=== PATIENT | male | born 1950 | race Caucasian/White ===

== ENCOUNTER 2017-03-26 08:56 | Emergency (ER) | payer MEDICARE ==
--- NOTE | 2017-03-26 09:25 | Emergency Department Record ---
History of Present Illness - General Chief complaint: Abscess Stated complaint: ABSCESS ON SHOULDER Time Seen by Provider: 03/26/17 09:23 Source: Patient Mode of Arrival: Ambulatory Limitations: No limitations - History of Present Illness Initial comments: 66 yo male presents to ED with a CC of worsening swelling, pain, and drainage from the posterior left scapular region. Patient reports that he injured himself with a splinter to the area 15 years ago, and as a result has intermittent pain and swelling for years. Patient denies fevers, chills, or recent illness. Patient reports that he attempted to drain the lesion at home. Patient denies health problems other than COPD. MD complaint: Abscess/boil Onset/Timin -: Days(s) Location: Back Severity: Moderate Severity scale (1-10): 6 Quality: Aching Consistency: Constant Improves with: None Worsens with: Palpation Associated symptoms: Denies other symptoms - Related Data Home Medications Medication Instructions Recorded Confirmed Last Taken Hydrochlorothiazide [Hctz 12.5MG] 12.5 mg PO DAILY 03/26/17 03/26/17 03/25/17 Lisinopril [Zestril] 20 mg PO DAILY 03/26/17 03/26/17 03/25/17 Previous Rx's Medication Instructions Recorded Clindamycin HCl 300 mg PO QID #28 capsule 03/26/17 Allergies Allergy/AdvReac Type Severity Reaction Status Date / Time No Known Drug Allergies Allergy Verified 03/26/17 09:05 Travel Screening - Travel/Exposure Within Last 30 Days Have you traveled within the last 30 days?: No - Travel/Exposure Within Last Year Have you traveled outside the [place] in the last year?: No - Additonal Travel Details Have you been exposed to anyone with a communicable illness?: No - Travel Symptoms Symptom Screening: None Review of Systems Constitutional: Denies: Chills, Fever, Malaise Eyes: Denies: Eye discharge, Eye pain ENT: Denies: Congestion, Ear pain, Epistaxis Respiratory: Denies: Cough, Dyspnea Cardiovascular: Denies: Chest pain, Dyspnea on exertion Endocrine: Denies: Fatigue, Heat or cold intolerance Gastrointestinal: Denies: Abdominal pain, Nausea, Vomiting Genitourinary: Denies: Incontinence, Retention Musculoskeletal: Reports: Back pain (left scapular pain/swelling). Denies: Arthralgia, Gout, Joint swelling Skin: Denies: Bruising, Change in color, Change in hair/nails Neurological: Denies: Abnormal gait, Confusion, Headache, Seizure Psychiatric: Denies: Anxiety Hematological/Lymphatic: Denies: Anemia, Blood Clots Past Medical History - SOCIAL HISTORY Smoking Status: Current every day smoker Alcohol Use: Heavy Drug Use: None - RESPIRATORY Hx Respiratory Disorders: Yes Hx COPD: Yes - CARDIOVASCULAR Hx Cardio Disorders: Yes Hx Hypertension: Yes - NEURO Hx Neuro Disorders: No - GI Hx GI Disorders: No - Hx Genitourinary Disorders: No - ENDOCRINE Hx Endocrine Disorders: No - MUSCULOSKELETAL Hx Musculoskeletal Disorders: Yes Hx Back Injury: Yes - PSYCH Hx Psych Problems: No - HEMATOLOGY/ONCOLOGY Hx Hematology/Oncology Disorders: No Family Medical History Any Significant Family History?: No Physical Exam - General General Appearance: Alert, Oriented x3, Cooperative, No acute distress Limitations: No limitations - Head Head exam: Atraumatic, Normocephalic, Normal inspection Head exam detail: negative: Abrasion, Contusion, Soni's sign, General tenderness, Hematoma, Laceration - Eye Eye exam: Normal appearance. negative: Conjunctival injection, Periorbital swelling, Periorbital tenderness, Scleral icterus - ENT Ear exam: negative: Auricular hematoma, Auricular trauma Nasal Exam: negative: Active bleeding, Discharge, Dried blood, Foreign body Mouth exam: negative: Drooling, Laceration, Muffled voice, Tongue elevation - Neck Neck exam: Normal inspection. negative: Meningismus, Tenderness - Respiratory Respiratory exam: Normal lung sounds bilaterally. negative: Rales, Respiratory distress, Rhonchi, Stridor - Cardiovascular Cardiovascular Exam: Regular rate, Normal rhythm, Normal heart sounds - GI/Abdominal GI/Abdominal exam: Soft. negative: Rebound, Rigid, Tenderness - Rectal Rectal exam: Deferred - exam: Deferred - Extremities Extremities exam: Normal inspection. negative: Calf tenderness, Pedal edema, Tenderness - Back Back exam: Denies: CVA tenderness (R), CVA tenderness (L) Image of Body Front/Back: 1 - Raised lesion to the left scapular region - Neurological Neurological exam: Alert, Normal gait, Oriented X3 - Psychiatric Psychiatric exam: Normal affect, Normal mood - Skin Skin exam: Erythema Type of lesion: Abscess Distribution of rash: Back Course Vital Signs 03/26/17 08:57 Temperature 97.9 F Pulse Rate 95 H Respiratory 16 Rate Blood Pressure 156/105 Pulse Ox 98 - Reevaluation(s) Reevaluation #1: 03/26/17 09:30 Procedure Note: Area was anesthetized with 1.0 mL 1% Lidocaine with epi with good anesthesia, lesion was incised with #11 Blade and probed to break up loculations in the area. Lesion appears c/s probably ganglion cyst on evaluation, will refer to [facility]ty [facility] for further evaluation and possible surgical removal. Will discharge home on Clindamycin as well for antibiotic treatment for possible abscess. 03/26/17 09:32 Disposition Disposition: Discharge Clinical Impression: Ganglion cyst Disposition: Home, Self-Care Condition: (2) Stable Instructions: Abscess Incision and Drainage (ED) Additional Instructions: Return to ED if your symptoms worsen or if you have any concerns. Clindamycin as directed. Follow-up with Dr. Durbin in the [facility] for evaluation of possible ganglion cyst. Prescriptions: Clindamycin HCl 300 mg PO QID #28 capsule Referrals: Edwardo Durbin [DOCTOR OF OSTEOPATH] - [facility] [Provider Group] Forms: Patient Portal Access Time of Disposition: 09:25
== END 2017-03-26 09:36 | disposition home or self-care (01) ==
LOC: ER 08:56
DX: M67.412 Ganglion, left shoulder (principal)
CPT/HCPCS: 10060; 99283

== ENCOUNTER 2018-12-20 02:39 | Emergency (ER) | payer MEDICARE ==
--- NOTE | 2018-12-20 02:45 | Emergency Department Record ---
History of Present Illness - General Stated Complaint: FALL W/ETOH Time Seen by Provider: 12/20/18 02:40 Source: Patient, EMS Mode of Arrival: EMS Limitations: No limitations - History of Present Illness Initial Comments: 68 yo male presents to ED for evaluation following a fall injury resulting in injury to the left jerrica-orbital region on examination. Patient denies LOC, however reports that he has been drinking alcohol this evening. Patient denies other injury on examination. Patient denies the use of anticoagulation medications on examination. Patient denies numbness, tingling, or focal weakness on examination. MD Complaint: Fall Onset/Timin -: Minutes(s) When Fall Occurred: 1 hour [employer] Fall Witnessed: Yes, by bystander Place Fall Occurred: Home Loss of Consciousness: Unsure Prolonged Down Time?: No Symptoms Prior to Fall: None Location: Head Severity: Moderate Context: Alcohol use - Semaj Coma Scale Eye Response: (4) Open spontaneously Motor Response: (6) Obeys commands Verbal Response: (5) Oriented Semaj Total: 15 - Related Data Allergies Allergy/AdvReac Type Severity Reaction Status Date / Time No Known Drug Allergies Allergy Verified 12/20/18 02:43 Review of Systems Constitutional: Denies: Chills, Malaise, Night sweats Eyes: Denies: Eye discharge, Eye pain ENT: Denies: Congestion, Ear pain, Epistaxis Respiratory: Denies: Cough, Dyspnea Cardiovascular: Denies: Chest pain, Dyspnea on exertion Endocrine: Denies: Fatigue, Heat or cold intolerance Gastrointestinal: Denies: Abdominal pain, Nausea, Vomiting Genitourinary: Denies: Incontinence, Retention Musculoskeletal: Denies: Arthralgia, Back pain, Gout, Joint swelling Skin: Denies: Bruising, Change in color Neurological: Denies: Abnormal gait, Confusion, Headache, Seizure Psychiatric: Denies: Anxiety Hematological/Lymphatic: Denies: Anemia, Blood Clots Past Medical History - SOCIAL HISTORY Smoking Status: Current every day smoker Drug Use: None - RESPIRATORY Hx Respiratory Disorders: Yes Hx COPD: Yes - CARDIOVASCULAR Hx Cardio Disorders: Yes Hx Hypertension: Yes - NEURO Hx Neuro Disorders: No - GI Hx GI Disorders: No - Hx Genitourinary Disorders: No - ENDOCRINE Hx Endocrine Disorders: No - MUSCULOSKELETAL Hx Musculoskeletal Disorders: Yes Hx Back Injury: Yes - PSYCH Hx Psych Problems: No - HEMATOLOGY/ONCOLOGY Hx Hematology/Oncology Disorders: No Physical Exam - General General Appearance: Alert, Oriented x3, Cooperative, Mild distress, Other ( Clinically intoxicated on examination, moderate STS the the supra-orbital region left eye.) Limitations: Altered mental status - Head Head exam detail: Hematoma (Hematoma above the left supra-orbital region, no overlying laceration present.). negative: Abrasion, Contusion, Soni's sign, General tenderness, Laceration - Eye Eye exam: Normal appearance. negative: Conjunctival injection, Periorbital swelling, Periorbital tenderness, Scleral icterus - ENT Ear exam: negative: Auricular hematoma, Auricular trauma Nasal Exam: negative: Active bleeding, Discharge, Dried blood, Foreign body Mouth exam: negative: Drooling, Laceration, Muffled voice, Tongue elevation - Neck Neck exam: Normal inspection. negative: Meningismus, Tenderness - Respiratory Respiratory exam: Normal lung sounds bilaterally. negative: Rales, Respiratory distress, Rhonchi, Stridor - Cardiovascular Cardiovascular Exam: Regular rate, Normal rhythm, Normal heart sounds - GI/Abdominal GI/Abdominal exam: Soft. negative: Rebound, Rigid, Tenderness - Rectal Rectal exam: Deferred - exam: Deferred - Extremities Extremities exam: Normal inspection. negative: Pedal edema, Tenderness - Back Back exam: Denies: CVA tenderness (R), CVA tenderness (L) - Neurological Neurological exam: Alert, Oriented X3. negative: Motor sensory deficit - Psychiatric Psychiatric exam: Normal affect, Normal mood - Skin Skin exam: Normal color. negative: Abrasion Type of lesion: negative: abrasion Course - Reevaluation(s) Reevaluation #1: 12/20/18 02:45 Patient was seen and examined, no history of anticoagulation medication use on examination. Will obtain CT imaging of the head, maxillo-facial bones, and cervical spine and observe until clinically sober. Reevaluation #2: 12/20/18 04:32 CT Brain: No acute intracranial hemorrhage. No skull fracture. CT Maxillofacial bones: No acute facial bone fracture Left preseptal subcutaneous tissue swelling/hematoma CT Cervical Spine: No acute osseous abnormality Multi-level DJD Patient is ambulating around Room #5 without difficulty, appears stable for discharge with a sober ride when available. Will continue to monitor. 12/20/18 06:36 Patient was reassessed, sleeping, easily arouses to voice. Patient does not have his phone on his belongings to call for a ride, does not know any phone numbers to call for a ride. Reevaluation #3: 12/20/18 06:55 Case was discussed with oncoming provider, will assume care and disposition pending sober ride back to [place]. Disposition Disposition: Discharge Clinical Impression: Periorbital hematoma of left eye Alcohol intoxication Qualifiers: Complication of substance-induced condition: uncomplicated Qualified Code(s): F10.920 - Alcohol use, unspecified with intoxication, uncomplicated Fall Qualifiers: Encounter type: initial encounter Qualified Code(s): W19.XXXA - Unspecified fall, initial encounter Disposition: Home, Self-Care Condition: (2) Stable Instructions: Fall Prevention (ED) Additional Instructions: Return to ED if your symptoms worsen or if you have any concerns. Follow-up with your family doctor in 3-5 days as directed. Time of Disposition: 04:35 Quality - Quality Measures Quality Measures: N/A - Blood Pressure Screening Does Patient Have Any of the Following: No Blood Pressure Classification: Normal BP Reading Systolic Measurement: 115 Diastolic Measurement: 76 Screening for High Blood Pressure: < Normal BP, F/U Not Required > [[id number]]
--- NOTE | 2018-12-22 07:34 | CT SCAN REPORT ---
EXAM: NONCONTRAST CT OF THE BRAIN HISTORY: FALL. TECHNIQUE: Noncontrast CT of the brain was obtained. Comparison: None. FINDINGS: No midline shift, mass effect, or abnormal intra or extraaxial fluid collection. No cerebral edema, focal mass or intracranial hemorrhage detected. The ventricle size is within normal limits for patient age. The basal cisterns are not effaced. No displaced calvarial fracture is seen. Left lateral periorbital soft tissue hematoma. IMPRESSION: 1. NO ACUTE INTRACRANIAL FINDINGS. 2. SUPERFICIAL LEFT LATERAL PERIORBITAL SOFT TISSUE HEMATOMA/SWELLING. 3. A PRELIMINARY REPORT WAS PROVIDED BY THE [facility]. JOB NUMBER: [id number] [facility]
--- NOTE | 2018-12-22 07:52 | CT SCAN REPORT ---
EXAM: NONCONTRAST CT OF THE FACIAL BONES HISTORY: FALL, LEFT PERIORBITAL TRAUMA. TECHNIQUE: Noncontrast CT of the facial bones was obtained. Comparison: None. FINDINGS: Focal lateral left periorbital soft tissue swelling suggestive of a hematoma. The globes are intact and symmetric. The retrobulbar fat is clear. The orbital rims appear intact. The nasal bones appear intact. The zygomatic arches appear intact. The mandible appears intact. The patient is edentulous. The paranasal sinuses are clear. IMPRESSION: 1. LEFT PERIORBITAL SOFT TISSUE SWELLING/HEMATOMA. 2. NO ACUTE FACIAL BONE FRACTURE. JOB NUMBER: [id number] [facility]
--- NOTE | 2018-12-22 07:56 | CT SCAN REPORT ---
EXAM: NONCONTRAST CT OF THE CERVICAL SPINE HISTORY: FALL. TECHNIQUE: Noncontrast CT of the cervical spine was obtained. Comparison: None. FINDINGS: No acute fracture is seen. No evidence of dislocation. The prevertebral soft tissues appear within normal limits. The vertebral body heights are maintained. Multilevel disk space height loss with end plate osteophytes, relative sparing at C2-C3. Diffuse facet arthrosis. No significant central spinal canal narrowing appreciated. The neural foramina appear narrowed at multiple levels. Suggestion of mild scarring in both lung apices. IMPRESSION: 1. NO EVIDENCE OF ACUTE CERVICAL SPINE FRACTURE OR DISLOCATION. 2. MULTILEVEL CERVICAL SPINE DEGENERATIVE FINDINGS. [facility]: [id number] [facility]
== END 2018-12-20 08:41 | disposition home or self-care (01) ==
LOC: ER 02:39
DX: S05.12XA Contusion of eyeball and orbital tissues, left eye, initial encounter (principal); S60.512A Abrasion of left hand, initial encounter; S80.212A Abrasion, left knee, initial encounter; F10.920 Alcohol use, unspecified with intoxication, uncomplicated; W10.9XXA Fall (on) (from) unspecified stairs and steps, initial encounter; Y92.009 Unspecified place in unspecified non-institutional (private) residence as the place of occurrence of the external cause; I10 Essential (primary) hypertension; F17.210 Nicotine dependence, cigarettes, uncomplicated; J44.9 Chronic obstructive pulmonary disease, unspecified
CPT/HCPCS: 70450; 70486; 72125; 99283; 99284